=== PATIENT | male | born 1985 | race Caucasian/White ===

== ENCOUNTER 2021-09-25 00:50 | Emergency (ER) | payer OTHER ==
[~2021-09-25] VITALS: Ht 182.9 cm; Wt 93.0 kg
[2021-09-25] MEDS ORDERED: WELLBUTRIN150 M1 PO (01:18)
[2021-09-25] MEDS ORDERED: FLONASE AL50 MCG/ACT (01:19)
[2021-09-25] MEDS ORDERED: AMOXICILLIN500 M2 (01:20)
[2021-09-25 02:05] LABS: HEMATOCRIT 42.2 % (39.0-50.0); IMMATURE GRANULOCYTES 0.1 % (0.0-5.0); MEAN CELL VOLUME 84.2 fL CALC (80.0-100.0); MEAN CORPUSCULAR HGB 29.9 pG CALC (26.0-32.0); MEAN CORPUSCULAR HGB CONC 35.5 g/dL CAL (32.0-36.0); NEUT# 3.71 thou/uL (1.82-7.42); RED BLOOD COUNT 5.01 mill/uL (4.70-6.10)
[2021-09-25 02:16] LABS: ALBUMIN 4.5 g/dL (3.2-5.0); ALKALINE PHOSPHATASE 58 u/l (38-126); ANION GAP 15 (6-22 (CALC)); BILIRUBIN, TOTAL 0.6 mg/dL (0.0-1.4); BUN 16 mg/dL (9-20); BUN/CREATININE RATIO 15 (12-20 (CALC)); CARBON DIOXIDE 27 mmol/l (22-30); CHLORIDE 101 mmol/l (95-108); CREATININE 1.1 mg/dL (0.7-1.3); GFR > 60 ML/MIN (>=60 (CALC)); GFR FOR AFR.AMER. > 60 ML/MIN (>=60 (CALC)); MAGNESIUM 1.8 mg/dL (1.6-2.3); POTASSIUM 3.8 mmol/l (3.5-5.1); SGOT/AST 21 u/l (17-59); SODIUM 139 mmol/l (137-146); TOTAL PROTEIN 7.5 g/dL (6.3-8.2)
[2021-09-25 02:41] LABS: URINE BILIRUBIN - DIPSTICK NEGATIVE (NEGATIVE); URINE BLOOD DIPSTICK NEGATIVE (NEGATIVE); URINE COLOR YELLOW; URINE GLUCOSE - DIPSTICK NEGATIVE (NEGATIVE); URINE KETONE NEGATIVE (NEGATIVE); URINE LEUK ESTERASE NEGATIVE (NEGATIVE); URINE PH 5.5 (4.5-8.0); URINE PROTEIN - DIPSTICK NEGATIVE (NEG-TRACE); URINE SPECIFIC GRAVITY >=1.030; URINE UROBILINOGEN - DIPSTICK 0.2 E.U./dL (0.2)
[2021-09-25 02:44] LABS: URINE NITRITE - DIPSTICK NEGATIVE (Negative)
[2021-09-25] MEDS ORDERED: HYDROXYZ HCL25 MG PO (03:33)
[2021-09-25 03:46] VITALS: BP 132/67
== END 2021-09-25 03:46 | disposition home or self-care (01) | DRG 880 ==
LOC: ED 00:50
PROVIDERS: Family Medicine
DX: F41.0 Panic disorder [episodic paroxysmal anxiety] (principal)

== ENCOUNTER 2023-07-19 11:28 | Emergency (ER) | payer SELFPAY ==
[~2023-07-19] VITALS: Ht 182.9 cm; Wt 100.8 kg
[2023-07-19] VITALS (12 sets, daily range): BP systolic 118–185; BP diastolic 76–101
[~2023-07-19 11:28] MED LIST: AMOXICILLIN500 M2; FLONASE AL50 MCG/ACT; HYDROXYZ HCL25 MG PO; WELLBUTRIN150 M1 PO
[2023-07-19 12:05] LABS: BASO% 0.6 % (0-3); EOS% 2.4 % (0-8); HEMATOCRIT 46.7 % (39.0-50.0); HEMOGLOBIN 16.1 g/dl (14.0-18.0); IMMATURE GRANULOCYTES 0.5 % (0.0-5.0); LYMPH% 31.5 % (15-41); MEAN CELL VOLUME 87.1 fL CALC (80.0-100.0); MEAN CORPUSCULAR HGB CONC 34.5 g/dL CAL (32.0-36.0); MONO% 9.4 % (2-13); NEUT# 6.14 thou/uL (1.82-7.42); NEUT% 55.6 % (42-76); RED BLOOD COUNT 5.36 mill/uL (4.70-6.10); RED CELL DISTRI WIDTH 12.2 % (11.5-15.5)
[2023-07-19 12:21] LABS: ALBUMIN 4.6 g/dL (3.2-5.0); ALKALINE PHOSPHATASE 63 u/l (38-126); ANION GAP 13 (6-22 (CALC)); BILIRUBIN, TOTAL 0.6 mg/dL (0.2-1.3); BUN 17 mg/dL (9-20); BUN/CREATININE RATIO 15 (12-20 (CALC)); CALCULATED LDLCHOLESTEROL 138 mg/dL (62-129 (CALC)); CARBON DIOXIDE 27 mmol/l (22-30); CHLORIDE 104 mmol/l (95-108); CHOLESTEROL HDL RATIO 6.7 (<4.4 (CALC)); CREATININE 1.1 mg/dL (0.7-1.3); GFR FOR AFR.AMER. > 60 ML/MIN (>=60 (CALC)); GFR OTHER RACES > 60 ML/MIN (>=60 (CALC)); HDL CHOLESTEROL 34 mg/dL (39.0-59.0); SGOT/AST 29 u/l (17-59); SODIUM 140 mmol/l (137-146); TOTAL CHOLESTEROL 228 mg/dl (0-199); TOTAL PROTEIN 7.5 g/dL (6.3-8.2); TOTAL TRIGLYCERIDES 280 mg/dl (0-149); VLDL CHOLESTROL 56 mg/dl (5-56 (CALC))
[2023-07-19 13:45] LABS: URINE BILIRUBIN - DIPSTICK Negative (NEGATIVE); URINE BLOOD DIPSTICK Negative (NEGATIVE); URINE GLUCOSE - DIPSTICK Negative (NEGATIVE); URINE KETONE Trace mg/dL (NEGATIVE); URINE LEUK ESTERASE Negative (NEGATIVE); URINE NITRITE - DIPSTICK Negative (Negative); URINE PH 5.5 (4.5-8.0); URINE PROTEIN - DIPSTICK Negative (NEG-TRACE); URINE SPECIFIC GRAVITY >=1.030; URINE UROBILINOGEN - DIPSTICK 0.2 E.U./dL (0.2)
[2023-07-19 13:47] LABS: URINE COLOR Yellow
[2023-07-19] MEDS ORDERED: PENICILLN VK500 MG PO (14:04)
[2023-07-19] MEDS ORDERED: COMPAZINE10 MG PO (14:04)
== END 2023-07-19 14:14 | disposition home or self-care (01) | DRG 103 ==
LOC: ED 11:28
PROVIDERS: Family Medicine
DX: G43.909 Migraine, unspecified, not intractable, without status migrainosus (principal); F41.0 Panic disorder [episodic paroxysmal anxiety]

== ENCOUNTER 2024-05-07 10:02 | Emergency (ER) | payer OTHER ==
[~2024-05-07] VITALS: Ht 182.9 cm; Wt 90.7 kg
[2024-05-07] VITALS (16 sets, daily range): BP systolic 106–173; BP diastolic 52–114
[~2024-05-07 10:02] MED LIST changes: +COMPAZINE10 MG PO; +PENICILLN VK500 MG PO
[2024-05-07] MEDS ORDERED: methylPREDNISolone SODIUM SUCC 125 MG/2 ML SDV IV ONE (10:20)
[2024-05-07] MEDS ORDERED: DiphenhydrAMINE HCL 50 MG/ML SDV IV ONE (10:20)
[2024-05-07 11:07] LABS: BASO% 0.5 % (0-3); EOS% 2.9 % (0-8); HEMATOCRIT 45.8 % (39.0-50.0); HEMOGLOBIN 15.7 g/dl (14.0-18.0); IMMATURE GRANULOCYTES 2.3 % (0.0-5.0); LYMPH% 26.1 % (15-41); MEAN CELL VOLUME 90.2 fL CALC (80.0-100.0); MEAN CORPUSCULAR HGB 30.9 pG CALC (26.0-32.0); MEAN CORPUSCULAR HGB CONC 34.3 g/dL CAL (32.0-36.0); MONO% 8.7 % (2-13); NEUT# 6.59 thou/uL (1.82-7.42); NEUT% 59.5 % (42-76); RED BLOOD COUNT 5.08 mill/uL (4.70-6.10); RED CELL DISTRI WIDTH 12.7 % (11.5-15.5)
[2024-05-07 11:15] LABS: ALBUMIN 4.2 g/dL (3.2-5.0); ALKALINE PHOSPHATASE 54 u/l (38-126); ANION GAP 5 (6-22 (CALC)); BILIRUBIN, TOTAL 0.4 mg/dL (0.2-1.3); BUN 22 mg/dL (9-20); BUN/CREATININE RATIO 24 (12-20 (CALC)); CARBON DIOXIDE 27 mmol/l (22-30); CHLORIDE 109 mmol/l (95-108); CREATININE 0.9 mg/dL (0.7-1.3); ESTIMATED GFR 112 ML/MIN (>=90 (CALC)); POTASSIUM 4.1 mmol/l (3.5-5.1); SGOT/AST 30 u/l (17-59); SODIUM 136 mmol/l (137-146); TOTAL PROTEIN 7.1 g/dL (6.3-8.2)
== END 2024-05-07 14:20 | disposition home or self-care (01) | DRG 93 ==
LOC: ED 10:02
PROVIDERS: Family Medicine
DX: R20.2 Paresthesia of skin (principal)
CPT/HCPCS: Q9967

== ENCOUNTER 2024-05-09 14:00 | Emergency (ER) | payer OTHER | END 2024-05-09 14:13 | disposition left against medical advice (07) | DRG 951 | LOC: ED 14:00 → LWOBS 14:13 | DX: Z53.21 Procedure and treatment not carried out due to patient leaving prior to being seen by health care provider (principal) ==

== ENCOUNTER 2024-11-07 13:17 | Emergency (ER) | payer OTHER ==
[2024-11-07] VITALS (7 sets, daily range): BP systolic 130–183; BP diastolic 78–112
[~2024-11-07] VITALS: Ht 182.9 cm; Wt 110.0 kg
[2024-11-07] MEDS ORDERED: LEXAPRO10 MG PO (13:28)
[2024-11-07] MEDS ORDERED: DEXAMETHASONE SOD. PHOSPHATE 10 MG/ML VIAL IV ONE (13:35)
[2024-11-07 13:49] LABS: BASO% 0.5 % (0-3); EOS% 3.2 % (0-8); HEMATOCRIT 43.4 % (39.0-50.0); HEMOGLOBIN 14.9 g/dl (14.0-18.0); IMMATURE GRANULOCYTES 0.5 % (0.0-5.0); LYMPH% 27.8 % (15-41); MEAN CELL VOLUME 88.9 fL CALC (80.0-100.0); MEAN CORPUSCULAR HGB 30.5 pG CALC (26.0-32.0); MEAN CORPUSCULAR HGB CONC 34.3 g/dL CAL (32.0-36.0); MONO% 5.9 % (2-13); NEUT# 4.1 thou/uL (1.82-7.42); NEUT% 62.1 % (42-76); RED BLOOD COUNT 4.88 mill/uL (4.70-6.10); RED CELL DISTRI WIDTH 12.2 % (11.5-15.5)
[2024-11-07 14:01] LABS: BILIRUBIN, TOTAL 0.6 mg/dL (0.2-1.3); CREATININE 0.8 mg/dL (0.7-1.3); POTASSIUM 4.2 mmol/l (3.5-5.1); TOTAL PROTEIN 6.6 g/dL (6.3-8.2)
[2024-11-07] MEDS ORDERED: PREDNISONE20 MG PO (14:15)
[2024-11-07 14:32] LABS: TSH, 3RD GENERATION 1.25 uIU/mL (0.47 - 4.68)
== END 2024-11-07 15:23 | disposition home or self-care (01) | DRG 607 ==
LOC: ED 13:17
PROVIDERS: Nurse Practitioner Family
DX: R21 Rash and other nonspecific skin eruption (principal); H04.123 Dry eye syndrome of bilateral lacrimal glands; R10.13 Epigastric pain; I10 Essential (primary) hypertension
CPT/HCPCS: J1100

== ENCOUNTER 2024-11-12 04:23 | Emergency (ER) | payer OTHER ==
[~2024-11-12] VITALS: Ht 185.4 cm; Wt 111.0 kg
[~2024-11-12 04:23] MED LIST changes: +LEXAPRO10 MG PO; +PREDNISONE20 MG PO
[2024-11-12 04:37] VITALS: BP 155/102
[2024-11-12 04:38] VITALS: BP 147/92
[2024-11-12] MEDS ORDERED: SODIUM CHLORIDE 0.9% 1,000 ML IV ONE (04:50)
[2024-11-12 05:00] VITALS: BP 137/90
[2024-11-12 05:15] LABS: URINE BILIRUBIN - DIPSTICK Negative (NEGATIVE); URINE BLOOD DIPSTICK Negative (NEGATIVE); URINE COLOR Yellow; URINE GLUCOSE - DIPSTICK Negative (NEGATIVE); URINE KETONE Negative (NEGATIVE); URINE LEUK ESTERASE Negative (NEGATIVE); URINE NITRITE - DIPSTICK Negative (Negative); URINE PH 5.5 (4.5-8.0); URINE PROTEIN - DIPSTICK Negative (NEG-TRACE); URINE UROBILINOGEN - DIPSTICK 0.2 E.U./dL (0.2)
[2024-11-12 05:15] LABS: BASO% 0.3 % (0-3); EOS% 1.7 % (0-8); HEMATOCRIT 45.4 % (39.0-50.0); HEMOGLOBIN 15.6 g/dl (14.0-18.0); IMMATURE GRANULOCYTES 2.6 % (0.0-5.0); LYMPH% 25.1 % (15-41); MEAN CELL VOLUME 87.6 fL CALC (80.0-100.0); MEAN CORPUSCULAR HGB 30.1 pG CALC (26.0-32.0); MEAN CORPUSCULAR HGB CONC 34.4 g/dL CAL (32.0-36.0); MONO% 8.3 % (2-13); NEUT# 9.12 thou/uL (1.82-7.42); RED BLOOD COUNT 5.18 mill/uL (4.70-6.10); RED CELL DISTRI WIDTH 11.9 % (11.5-15.5)
[2024-11-12 05:26] LABS: ALBUMIN 4.1 g/dL (3.2-5.0); BILIRUBIN, TOTAL 0.5 mg/dL (0.2-1.3); CREATININE 0.8 mg/dL (0.7-1.3); MAGNESIUM 2.1 mg/dL (1.6-2.3); POTASSIUM 3.8 mmol/l (3.5-5.1); TOTAL PROTEIN 6.9 g/dL (6.3-8.2)
[2024-11-12 05:30] VITALS: BP 138/91
[2024-11-12 05:57] LABS: TSH, 3RD GENERATION 3.3 uIU/mL (0.47 - 4.68)
[2024-11-12] MEDS ORDERED: LACTATED RINGER'S 1,000 ML IV ONE (06:15)
[2024-11-12 07:12] VITALS: BP 138/91
== END 2024-11-12 07:13 | disposition home or self-care (01) | DRG 125 ==
LOC: ED 04:23
PROVIDERS: Family Medicine
DX: H57.89 Other specified disorders of eye and adnexa (principal); M25.50 Pain in unspecified joint; I10 Essential (primary) hypertension

== ENCOUNTER 2025-01-31 21:36 | Emergency (ER) | payer OTHER ==
[~2025-01-31] VITALS: Ht 185.4 cm; Wt 118.0 kg
[2025-01-31] VITALS (9 sets, daily range): BP systolic 121–198; BP diastolic 67–120
[2025-01-31] MEDS ORDERED: ASPIRIN 81 MG/TAB PO ONE (21:55)
[2025-01-31] MEDS ORDERED: cloNIDine HCL 0.1 MG/TAB PO ONE (22:00)
[2025-01-31] MEDS ORDERED: LABETALOL HCL 20 MG/ 4 ML CARTRG IV ONE (22:00)
[2025-01-31] MEDS ORDERED: Acetaminophen 300 MG/Codeine 30 MG/COMBO PO ONE (22:00)
[2025-01-31 22:06] LABS: BASO% 0.7 % (0-3); HEMATOCRIT 45.9 % (39.0-50.0); HEMOGLOBIN 16.1 g/dl (14.0-18.0); IMMATURE GRANULOCYTES 1.3 % (0.0-5.0); LYMPH% 28.5 % (15-41); MEAN CELL VOLUME 86.8 fL CALC (80.0-100.0); MEAN CORPUSCULAR HGB 30.4 pG CALC (26.0-32.0); MEAN CORPUSCULAR HGB CONC 35.1 g/dL CAL (32.0-36.0); MONO% 9.5 % (2-13); NEUT# 6.18 thou/uL (1.82-7.42); RED BLOOD COUNT 5.29 mill/uL (4.70-6.10); RED CELL DISTRI WIDTH 12.5 % (11.5-15.5)
[2025-01-31 22:15] LABS: ALBUMIN 4.8 g/dL (3.2-5.0); ALKALINE PHOSPHATASE 50 u/l (38-126); ANION GAP 15 (6-22 (CALC)); BILIRUBIN, TOTAL 0.7 mg/dL (0.2-1.3); BUN 14 mg/dL (9-20); BUN/CREATININE RATIO 16 (12-20 (CALC)); CARBON DIOXIDE 24 mmol/l (22-30); CHLORIDE 105 mmol/l (95-108); CREATININE 0.9 mg/dL (0.7-1.3); ESTIMATED GFR 111 ML/MIN (>=90 (CALC)); LIPASE 82 u/l (23-300); POTASSIUM 4.2 mmol/l (3.5-5.1); SGOT/AST 44 u/l (17-59); SODIUM 140 mmol/l (137-146); TOTAL PROTEIN 7.9 g/dL (6.3-8.2)
[2025-01-31 22:27] LABS: ACT PARTIAL THROMBO TIME 27.2 SECONDS (20.0-32.5); INTERNATIONAL NORMALIZED RATIO 0.9 RATIO (0.7-1.3)
[2025-01-31 22:28] LABS: D-DIMER < 0.19 mg/L (0.19-0.60); PROTHROMBIN TIME 10.1 SECONDS (9.0-12.5)
[2025-01-31 22:41] LABS: URINE BILIRUBIN - DIPSTICK Negative (NEGATIVE); URINE BLOOD DIPSTICK Negative (NEGATIVE); URINE COLOR Yellow; URINE GLUCOSE - DIPSTICK Negative (NEGATIVE); URINE KETONE Negative (NEGATIVE); URINE LEUK ESTERASE Negative (NEGATIVE); URINE NITRITE - DIPSTICK Negative (Negative); URINE PH 5.5 (4.5-8.0); URINE PROTEIN - DIPSTICK Negative (NEG-TRACE); URINE UROBILINOGEN - DIPSTICK 0.2 E.U./dL (0.2)
[2025-01-31] MEDS ORDERED: TOPROL XL50 MG PO (23:28)
[2025-01-31] MEDS ORDERED: METOPROLOL TARTRATE 25 MG/TAB PO ONE (23:30)
== END 2025-01-31 23:48 | disposition home or self-care (01) | DRG 313 ==
LOC: ED 21:36
PROVIDERS: Family Medicine
DX: R07.89 Other chest pain (principal); I10 Essential (primary) hypertension; F41.0 Panic disorder [episodic paroxysmal anxiety]; F32.A Depression, unspecified